=== PATIENT | female | born 1950 | race Caucasian/White ===

== ENCOUNTER → 2023-10-30 08:43 | Outpatient (REF) | payer MEDICARE, SELFPAY | LOC: HWWDC 08:43 | PROVIDERS: ATTENDING PHYSICIAN Family Medicine | DX: Z12.31 Encounter for screening mammogram for malignant neoplasm of breast (principal) | CPT/HCPCS: 77063; 77067 ==

== ENCOUNTER → 2023-11-06 14:19 | Outpatient (REF) | payer MEDICARE, SELFPAY | LOC: HWRAD 14:19 | PROVIDERS: ATTENDING PHYSICIAN Family Medicine | DX: Z00.00 Encounter for general adult medical examination without abnormal findings (principal); K76.89 Other specified diseases of liver; E04.1 Nontoxic single thyroid nodule; M81.0 Age-related osteoporosis without current pathological fracture | CPT/HCPCS: 76536; 77080 ==

== ENCOUNTER → 2023-11-12 08:18 | Outpatient (REF) | payer MEDICARE, SELFPAY | LOC: HWRAD 08:18 | PROVIDERS: ATTENDING PHYSICIAN Family Medicine | DX: K76.89 Other specified diseases of liver (principal) | CPT/HCPCS: 76700 ==

== ENCOUNTER → 2024-02-05 12:20 | Outpatient (REF) | payer MEDICARE, SELFPAY | LOC: HWRAD 12:20 | PROVIDERS: ATTENDING PHYSICIAN Family Medicine | DX: M25.50 Pain in unspecified joint (principal) | CPT/HCPCS: 72110; 73523 ==

== ENCOUNTER → 2024-04-08 11:45 | Outpatient (REF) | payer MEDICARE, SELFPAY | LOC: HWRAD 11:45 | PROVIDERS: ATTENDING PHYSICIAN Family Medicine; REFERRING PHYSICIAN Orthopaedic Surgery | DX: R05.3 Chronic cough (principal); M25.50 Pain in unspecified joint | CPT/HCPCS: 71046; 73564 ==

== ENCOUNTER → 2024-05-13 11:55 | Outpatient (REF) | payer MEDICARE, SELFPAY | LOC: MRI 3T 11:55 | PROVIDERS: ATTENDING PHYSICIAN Specialist; FAMILY PHYSICIAN Family Medicine | DX: M54.50 Low back pain, unspecified (principal) | CPT/HCPCS: 72148 ==

== ENCOUNTER → 2024-06-07 09:36 | Outpatient (REF) | payer MEDICARE, SELFPAY | LOC: HWRAD 09:36 | PROVIDERS: ATTENDING PHYSICIAN Family Medicine | DX: N83.202 Unspecified ovarian cyst, left side (principal) | CPT/HCPCS: 76856 ==

== ENCOUNTER 2024-12-05 06:06 | Day surgery (SDC) | payer MEDICARE, SELFPAY ==
--- NOTE | 2024-11-21 10:57 | CM ---
CM reviewed medical records. CM spoke with patient via live telephone. Patient lives independently with . Patient has has a history of VN for PICC line care, but is currently not on service. Patient does not have a history of SNF. Patient
has a walker. CM encouraged patient to review DME list from [employer] for any further DME needs.
Patient is active with her PCP.
Patient plans to use [facility] for medication services post operatively.
Patient has an outpatient PT facility planed: [facility] and then eventually transitioning to another facility that is preferred in [facility].
Patient understands she will have VN same day and CM advised that [facility] will call to make arrangements.
PLAN:Home with [facility] and then transition to outpatient PT.
--- NOTE | 2024-11-21 15:52 | VNURNOTE ---
Patient is scheduled for an elective L TKA on 12/05 - she is a same day patient with Dr Yarbrough. Spoke with patient prior to surgery. Introduced role of [facility] Liaison. Patient reports that she lives with his in a MULTI story home.
There are 0 steps to enter and a flight of steps to the second floor.
There is a powder room on the entry manager. She has a rolling walker.
PCP is Dr Schmidt
Discussed [facility] joint protocol and post surgical plans.
Reviewed that she will have VN services initially and will then start outpatient PT.
Patient selects [facility] for home care needs and will go to [facility] for outpatient PT. Scheduled TBD. Advised to schedule for TH (12/08) or Thu (12/09) of the surgical week.
Patient is in agreement with plan and states that her spouse will be home with her. Advised to bring RW with her day of surgery. Referral placed in [facility]. All questions answered.
Plan: [facility] per [facility] joint protocol 12/05 then outpt PT TBD
[2024-11-29 11:49] LABS: Hematocrit 39.6 % (37.0-47.0); Hemoglobin 12.9 g/dL (12.0-16.0); Mean Corp Hgb Conc. 32.6 g/dL (33.0-37.0); Mean Corpuscular Volume 92.7 fL (81.0-99.0); Platelet Count 246 10^3/uL (130-400); Red Cell Dist. Width 13.4 % (11.5-14.5)
[2024-11-29 12:42] LABS: ALT (SGPT) 18 U/L (0-35); AST (SGOT) 20 U/L (14-36); Albumin 4.9 g/dl (3.5-5.0); Alkaline Phosphatase 62 U/L (38-126); Blood Urea Nitrogen 24 mg/dl (7-17); Calcium 10.2 mg/dl (8.4-10.2); Carbon Dioxide 25 mmol/L (22-30); Chloride 105 mmol/L (98-107); Glucose 102 mg/dl (70-99); Potassium 5.1 mmol/L (3.5-5.1); Sodium 141 mmol/L (135-145); Total Protein 6.7 g/dl (6.3-8.2); eGFR 59.49
[2024-11-29 13:30] LABS: Glycohemoglobin (HgbA1c) 5.6 % (4.0-5.6)
[2024-11-29 14:20] VITALS: BMI 32.8
[2024-12-05] VITALS (13 sets, daily range): BP systolic 90–159; BP diastolic 55–95; PULSE 78; O2SAT 97; BMI 32.8
[2024-12-05] MEDS: TYLENOL 650 MG PO (07:44)
[2024-12-05] MEDS: MOBIC 15 MG PO (07:44)
[2024-12-05] MEDS: NORMOSOL-R/PLASMALYTE-A 1000 IV (07:44)
--- NOTE | 2024-12-05 09:00 | W.DS.TRANS ---
DC Summary - External Relations Director
-
Discharge Instructions:
Discharge Diagnosis/Procedures L TKA Dr. Yarbrough 12/05/24
Diet As tolerated
Activity With Walker
Driving Restrictions No driving
Bathing Restrictions OK to Shower
Other Services PT
Instructions:
Stand-Alone Forms: SDS Total Hip and Knee D/C
Changes to Home Medications: Yes
Discharge Medications:
DC Medications w/original date entered in [facility]
acetylcysteine 600 mg capsule 600 mg PO DAILY 05/22/20
cyanocobalamin (vitamin B-12) 1,000 mcg tablet 1,000 mcg PO DAILY 05/22/20
cyclobenzaprine 5 mg tablet 5 mg PO HSPRN PRN Muscle Spasms 05/22/20
loratadine 10 mg tablet 10 mg PO BID 05/22/20
magnesium 250 mg tablet 250 mg PO BID 05/22/20
pravastatin 10 mg tablet 10 mg PO HS 05/22/20
Collagen Peptide 1 dose PO DAILY 11/28/24
Held on 12/05/24. Instructions: Resume on 12/13/24.
Monolaurin 500 mg PO DAILY 11/28/24
[place] 3 360 mg PO DAILY 11/28/24
Held on 12/05/24. Instructions: Resume on 12/13/24.
amlodipine 2.5 mg tablet 2.5 mg PO DAILY 11/28/24
ascorbic acid (vitamin C) 500 mg tablet (Vitamin C) 500 mg PO BID 11/28/24
calcium carbonate (Calcium 600) 600 mg PO DAILY 11/28/24
fexofenadine 180 mg tablet 180 mg PO DAILY 11/28/24
levalbuterol tartrate 45 mcg/actuation aerosol inhaler 2 inh inhalation PRN PRN SOB 11/28/24
multivitamin 1 tab PO DAILY 11/28/24
vitamin D3-vitamin K2 1 cap PO DAILY 11/28/24
cefadroxil 500 mg capsule 500 mg PO BID #14 caps 11/29/24
dexamethasone 4 mg tablet 4 mg PO BID Anti-inflammatory #7 tabs 11/29/24
famotidine 20 mg tablet (Pepcid) 20 mg PO HS #30 tabs 11/29/24
meloxicam 15 mg tablet 15 mg PO DAILY #14 tabs 11/29/24
mupirocin 2 % topical ointment 1 applic intranasal BID #1 tube 11/29/24
ondansetron HCl 4 mg tablet 4 mg PO Q6H PRN nausea and vomiting #30 tabs 11/29/24
oxycodone 5 mg tablet 5 - 10 mg (1 - 2 x 5 mg) PO Q6H PRN moderate-severe pain #30 tabs 11/29/24
Saccharomyces boulardii 250 mg capsule (Florastor) 250 mg PO BID #1 cap 12/05/24
acetaminophen 650 mg tablet,extended release 1,300 mg (2 x 650 mg) PO TID #0 tabs 12/05/24
aspirin 325 mg tablet 325 mg PO DAILY blood clot prevention #1 tab 12/05/24
docusate sodium 100 mg capsule (Colace) 100 mg PO BID stool softner #1 cap 12/05/24
losartan 50 mg tablet 50 mg PO BID #0 tabs 12/05/24
magnesium hydroxide 400 mg/5 mL oral suspension (Milk of Magnesia) 30 ml PO HS PRN constipation #1 mL 12/05/24
sennosides 8.6 mg tablet (Senokot) 17.2 mg (2 x 8.6 mg) PO BID laxative #2 tabs 12/05/24
Home Medication Changes
cefadroxil 500 mg capsule 500 mg PO BID #14 caps 11/29/24
dexamethasone 4 mg tablet 4 mg PO BID Anti-inflammatory #7 tabs 11/29/24
famotidine 20 mg tablet (Pepcid) 20 mg PO HS #30 tabs 11/29/24
meloxicam 15 mg tablet 15 mg PO DAILY #14 tabs 11/29/24
mupirocin 2 % topical ointment 1 applic intranasal BID #1 tube 11/29/24
ondansetron HCl 4 mg tablet 4 mg PO Q6H PRN nausea and vomiting #30 tabs 11/29/24
oxycodone 5 mg tablet 5 - 10 mg (1 - 2 x 5 mg) PO Q6H PRN moderate-severe pain #30 tabs 11/29/24
Saccharomyces boulardii 250 mg capsule (Florastor) 250 mg PO BID #1 cap 12/05/24
acetaminophen 650 mg tablet,extended release 1,300 mg (2 x 650 mg) PO TID #0 tabs 12/05/24
aspirin 325 mg tablet 325 mg PO DAILY blood clot prevention #1 tab 12/05/24
docusate sodium 100 mg capsule (Colace) 100 mg PO BID stool softner #1 cap 12/05/24
losartan 50 mg tablet 50 mg PO BID #0 tabs 12/05/24
magnesium hydroxide 400 mg/5 mL oral suspension (Milk of Magnesia) 30 ml PO HS PRN constipation #1 mL 12/05/24
sennosides 8.6 mg tablet (Senokot) 17.2 mg (2 x 8.6 mg) PO BID laxative #2 tabs 12/05/24
Pending Results: No
[2024-12-05] MEDS: ANCEF 5 IV (13:32)
[2024-12-05] MEDS: TYLENOL 1000 MG PO (14:08)
== END 2024-12-05 14:20 | disposition home or self-care (01) ==
LOC: SDS 06:06
PROVIDERS: ATTENDING PHYSICIAN Specialist; FAMILY PHYSICIAN Family Medicine; OTHER PHYSICIAN Internal Medicine Cardiovascular Disease; OTHER PHYSICIAN Physician Assistant
DX: M17.0 Bilateral primary osteoarthritis of knee (principal); E66.9 Obesity, unspecified; Z68.32 Body mass index [BMI] 32.0-32.9, adult
CPT/HCPCS: 27447; 36415; 73560; 80053; 83036; 85027; 87070; 97116; 97162; C1713; C1776

== ENCOUNTER → 2024-12-12 13:45 | Outpatient (REF) | payer MEDICARE, SELFPAY | LOC: RAD 13:45 | PROVIDERS: ATTENDING PHYSICIAN Specialist; FAMILY PHYSICIAN Family Medicine | DX: M79.662 Pain in left lower leg (principal) | CPT/HCPCS: 93971 ==